=== PATIENT | male | born 1935 | race Asian ===

== ENCOUNTER 2022-11-04 23:59 | Inpatient (IN) | payer OTHER ==
[~2022-11-04] VITALS: Ht 172.7 cm; Wt 72.6 kg
[2022-11-05] MEDS ORDERED: LOSARTAN-HCTZ1 EAC1 (00:27)
== END 2022-11-16 17:36 | disposition left against medical advice (07) | DRG 281 ==
LOC: ER 23:59 → MEDJ 11-05 19:21 → ICU-2 11-05 22:49 → ICU 11-06 20:59 → MEDI 11-08 19:25
PROVIDERS: ADMIT Internal Medicine; ATTEND Internal Medicine
PROC: BW28ZZZ Computerized Tomography (CT Scan) of Head (ICD-10-PCS; principal; 2022-11-05)
PROC: 5A0935A Assistance with Respiratory Ventilation, Less than 24 Consecutive Hours, High Flow/Velocity Cannula (ICD-10-PCS; 2022-11-05)
PROC: B246ZZZ Ultrasonography of Right and Left Heart (ICD-10-PCS; 2022-11-06)
PROC: 3E0F7GC Introduction of Other Therapeutic Substance into Respiratory Tract, Via Natural or Artificial Opening (ICD-10-PCS; 2022-11-06)
PROC: 4A12X4Z Monitoring of Cardiac Electrical Activity, External Approach (ICD-10-PCS; 2022-11-09)
PROC: BB24YZZ Computerized Tomography (CT Scan) of Bilateral Lungs using Other Contrast (ICD-10-PCS; 2022-11-14)
DX: I11.0 Hypertensive heart disease with heart failure (principal); I21.4 Non-ST elevation (NSTEMI) myocardial infarction; E87.29 Other acidosis; J44.1 Chronic obstructive pulmonary disease with (acute) exacerbation; I50.9 Heart failure, unspecified; E87.6 Hypokalemia; I34.0 Nonrheumatic mitral (valve) insufficiency; E09.9 Drug or chemical induced diabetes mellitus without complications; Z20.822 Contact with and (suspected) exposure to COVID-19